=== PATIENT | female | born 1990 | race Caucasian/White ===

== ENCOUNTER → 2023-04-25 | Outpatient (CLI) | payer OTHER ==
--- NOTE | 2023-04-25 16:21 | US ---
EXAMINATION TYPE: US extremity nonvasc mass RT DATE OF EXAM: 04/25/2023 COMPARISON: NONE CLINICAL INDICATION: Female, 32 years old with history of M25.429 EFFUSION, UNSPECIFIED ELBOW; right elbow swelling x 2 months TECHNIQUE: Grayscale imaging of the elbow FINDINGS: Scanned area of concern no fluid visualized. No suspicious masses. No lymphadenopathy. IMPRESSION: No evidence for effusion.
== END | disposition home or self-care (01) ==
LOC: RADUSWWP 15:24
PROVIDERS: ATTEND Physician Assistant Medical
DX: M25.421 Effusion, right elbow (principal)